=== PATIENT | male | born 1990 | race Two or more races ===

== ENCOUNTER 2024-07-17 22:24 | Inpatient (IN) | payer MEDICAID, OTHER ==
[~2024-07-17] VITALS: Ht 172.7 cm; Wt 112.5 kg
[2024-07-17 23:08] LABS: Basophils # (auto) 0.1 10 ^3/uL (0-0.2); Basophils % (auto) 0.6 % (0.0-2.0); Eosinophils # (auto) 0.2 10 ^3/uL (0-0.8); Eosinophils % (auto) 1.9 % (0.0-7.0); Hematocrit 42.8 % (41.0-53.0); Hemoglobin 14.8 g/dL (13.5-17.5); Lymphocytes # (auto) 3.5 10 ^3/uL (0.4-5.4); Lymphocytes % (auto) 33.2 % (10.0-50.0); Mean Corpuscular Hemoglobin 32.1 pg (28.0-32.0); Mean Corpuscular Hgb Conc. 34.6 g/dL (32.0-36.0); Mean Corpuscular Volume 92.7 fL (80.0-100.0); Monocytes # (auto) 0.9 10 ^3/uL (0-1.3); Monocytes % (auto) 8.2 % (0.0-12.0); Neutrophils % (auto) 56.1 % (37.0-80.0); Nucleated Red Blood Cells % 0.1 %; Platelet Count (auto) 263 10^3/uL (140-450); Red Blood Cells 4.62 10^6/uL (4.5-5.90); Red Cell Distribution Width 14.4 % (11.8-14.3); White Blood Cell 10.6 10^3/uL (4.4-10.8)
[2024-07-17 23:19] VITALS: PULSE 84; RESP 15
[2024-07-17 23:19] LABS: Alanine Aminotransferase 40 U/L (7-40); Albumin 4.5 g/dL (3.2-4.8); Alkaline Phosphatase 95 U/L (46-116); Anion Gap 11 (5-15); Aspartate Aminotransferase 19 U/L (13-40); BUN/Creatinine Ratio 12.1 (10.0-20.0); Bilirubin, Total 0.3 mg/dL (0.2-1.0); Blood Urea Nitrogen 12 mg/dL (9-23); Calcium 10.1 mg/dL (8.7-10.4); Carbon Dioxide 24 mmol/L (20-31); Chloride 104 mmol/L (98-107); Glucose 94 mg/dL (74-106); Magnesium 1.7 mg/dL (1.6-2.6); Potassium 3.5 mmol/L (3.5-5.1); Sodium 139 mmol/L (136-145); Total Protein 7.2 g/dL (5.7-8.2)
--- NOTE | 2024-07-17 23:23 | DVH ---
EXAM: XY CHEST PORTABLE CLINICAL HISTORY: chest pain TECHNIQUE: Single AP view of the chest WID: COMPARISON: None FINDINGS: Lines and tubes: None Chest: The heart size and pulmonary vasculature is within normal limits. No pleural effusion, pneumothorax, or consolidation. The osseous structures are grossly intact. IMPRESSION: No acute cardiopulmonary abnormality.
[2024-07-17] MEDS: IOHEXOL 350 MG/ML 100ML IJ ONE (23:34)
--- NOTE | 2024-07-17 23:38 | DVH ---
INDICATION: pleuritic chest pain COMPARISON: None TECHNIQUE: Multidetector CTA of the chest was performed of the chest with 100 cc of intravenous omnip aque 350 contrast. PULMONARY ANGIOGRAPHY PROTOCOL was utilized using a bolus-tracking technique cente red on the main pulmonary artery. Axial, coronal and sagittal multiplanar and MIP reformats were perf ormed. Radiation Dose : 1. Chest: CTDI volume is 28.58 mGy. Dose-length product is 1506.48 mGy*cm The dose indicators for CT are the volume Computed Tomography (CT) Dose Index (CTDIvol) and the Dose Length Product (DLP), and are measured in units of mGy and mGy-cm, respectively. These indicators are not patient dose, but values generated from the CT scanner acquisition factors. The report includes radiation exposure data for exposures received during this examination. Findings: There is cardiomegaly. There is interstitial stranding in the lower lung bases I do not see evidence for pulmonary embolus. No evidence for dissection of the aorta. In the ribs are intact. Is also some evidence for interstitial edema. Lower esophagus is unremarkable. IMPRESSION: 1. Interstitial edema no evidence for pulmonary embolus. There is also cardiomegaly. Follow-up cardi ac consult is suggested
[2024-07-18 00:08] LABS: Urine Bacteria None Seen /hpf (None Seen)
[2024-07-18 00:49] LABS: Urine Blood Negative /uL (Negative); Urine Clarity Clear (Clear); Urine Color Light-Yellow (Yellow); Urine Protein, UAD TRACE (Negative); Urine Squamous Epithelial Cell None Seen /hpf (<5); Urine Urobilinogen Normal (Negative); Urine pH 5.5 (5.0-9.0)
[2024-07-18 00:51] LABS: Urine Specific Gravity > 1.050 (1.001-1.035); Urine WBC < 1 /HPF (0-3)
--- NOTE | 2024-07-18 02:06 | ED.PDOC ---
History of Present Illness HPI Comments 34 y/o M, with a Hx of HTN, gout, obesity, and tobacco use, presents with relative for c/o chest and back pain, shortness of breath, dizziness, and lightheadedness, today. Patient is a poor historian and endorses on unprovoked onset of symptoms that have been persisting, intermittently, for the past 2x weeks. Patient comments on pain originating from his sternum and radiating to his back, directly, and describes it as pressure-like in quality. He also states on [id number] pain medication use with minimal relief. He denies having any palpitations, nausea, vomiting, fever, chills, or other associated symptoms or modifiers at this time. Chief Complaint: Chest Pain Time Seen by MD: 23:30 Reviewed Notes: Nurses Notes, Medications, Allergies Information Source: Patient Mode of Arrival: Ambulatory Severity: Moderate Timing: Weeks Duration: Intermittent Prehospital treatment: None Past Medical History PAST MEDICAL HISTORY: Gout, HTN Past Medical History (Other): obesity Surgical History: Denies all surgeries Family History Family History: Unknown Social History Smoker: Cigarettes Alcohol: Denies ETOH Use Drugs: Denies Drug Use Lives In: Home Respiratory: reports: shortness of breath Cardiovascular: reports: chest pain, dizzy spells, lightheadedness Musculoskeletal: reports: back pain All Other Systems: Reviewed and Negative (negative unless otherwises stated above or in HPI) Physical Exam General Appearance: No Apparent Distress, Obese HEENT: Normal ENT Inspection, Pharynx Normal, TMs Normal Neck: Full Range of Motion, Non-Tender, Normal, Normal Inspection Respiratory: Chest Non-Tender, Lungs Clear, No Accessory Muscle Use, No Respiratory Distress, Normal Breath Sounds Cardiovascular: No Edema, No JVD, No Murmur, No Gallop, Normal Peripheral Pulses, Regular Rate/Rhythm Breast Exam: Deferred Gastrointestinal: No Organomegaly, Non Tender, No Pulsatile Mass, Normal Bowel Sounds, Soft Genitalia: Deferred Pelvic: Deferred Rectal: Deferred Extremities: No calf tenderness, Normal capillary refill, Normal inspection, Normal range of motion, Non-tender, No pedal edema Musculoskeletal : Apperance: Normal Neurologic: Alert, 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 Was a procedure done?: No EKG EKG : Pulse Rate (adult): 92 [place]: Normal Cardiac Rhythm: NSR Block: None Hypertrophy: None ST: Normal Differential Dx Considerations may include: [place], ACS, PE, PNA, viral syndrome, costochondritis, pericarditis X-Ray, Labs, Meds, VS Vital Signs Date Time Temp Pulse Resp B/P (MAP) Pulse Ox O2 Delivery O2 Flow Rate FiO2 07/18/24 02:31 87 16 118/73 07/18/24 02:28 98.0 87 16 118/73 (88) 96 98.0 07/18/24 02:06 92 07/17/24 23:48 92 07/17/24 23:20 137/91 (106) 07/17/24 23:19 97.9 95 14 130/95 (107) 94 97.9 07/17/24 22:33 98.6 105 18 147/93 (111) 95 07/17/24 22:30 96 Lab Test 07/18/24 00:00 07/17/24 23:40 07/17/24 22:35 Range/Units Urine Color Light-yellow Yellow Urine Clarity Clear Clear Urine pH 5.5 5.0-9.0 Urine Specific [place] > 1.050 H 1.001-1.035 Urine Protein Trace H Negative Urine Ketones Negative Negative Urine Blood Negative Negative /uL Urine Nitrite Negative Negative Urine Bilirubin Negative Negative Urine Urobilinogen Normal Negative mg/dL Urine Leukocyte Esterase Negative Negative /uL Urine RBC <1 0 - 3 /hpf Urine Microscopic WBC < 1 0-3 /HPF Urine Squamous Epithelial Cells None seen <5 /hpf Urine Bacteria None seen None Seen /hpf Urine Glucose Normal Normal mg/dL Troponin I High Sensitivity < 3 L < 3 L </=54 ng/L White Blood Count 10.6 4.4-10.8 10^3/uL Red Blood Count 4.62 4.5-5.90 10^6/uL Hemoglobin 14.8 13.5-17.5 g/dL Hematocrit 42.8 41.0-53.0 % Mean Corpuscular Volume 92.7 80.0-100.0 fL Mean Corpuscular Hemoglobin 32.1 H 28.0-32.0 pg Mean Corpuscular Hemoglobin Concent 34.6 32.0-36.0 g/dL Red Cell Distribution Width 14.4 H 11.8-14.3 % Platelet Count 263 140-450 10^3/uL Mean Platelet Volume 9.2 6.9-10.8 fL Neutrophils (%) (Auto) 56.1 37.0-80.0 % Lymphocytes (%) (Auto) 33.2 10.0-50.0 % Monocytes (%) (Auto) 8.2 0.0-12.0 % Eosinophils (%) (Auto) 1.9 0.0-7.0 % Basophils (%) (Auto) 0.6 0.0-2.0 % Neutrophils # (Auto) 6.0 1.6-8.6 10 ^3/uL Lymphocytes # (Auto) 3.5 0.4-5.4 10 ^3/uL Monocytes # (Auto) 0.9 0-1.3 10 ^3/uL Eosinophils # (Auto) 0.2 0-0.8 10 ^3/uL Basophils # (Auto) 0.1 0-0.2 10 ^3/uL Nucleated Red Blood Cells 0.1 % Sodium Level 139 136-145 mmol/L Potassium Level 3.5 3.5-5.1 mmol/L Chloride Level 104 98-107 mmol/L Carbon Dioxide Level 24 20-31 mmol/L Anion Gap 11 5-15 Blood Urea Nitrogen 12 9-23 mg/dL Creatinine 0.99 0.700-1.30 mg/dL Glomerular Filtration Rate Calc 103 >90 mL/min BUN/Creatinine Ratio 12.1 10.0-20.0 Serum Glucose 94 74-106 mg/dL Calcium Level 10.1 8.7-10.4 mg/dL Magnesium Level 1.7 1.6-2.6 mg/dL Total Bilirubin 0.3 0.2-1.0 mg/dL Aspartate Amino Transferase (AST) 19 13-40 U/L Alanine Aminotransferase (ALT) 40 7-40 U/L Alkaline Phosphatase 95 46-116 U/L Total Protein 7.2 5.7-8.2 g/dL Albumin 4.5 3.2-4.8 g/dL Current Medications Medications (Trade) Dose Ordered Sig/Poppy Route Start Time Stop Time Status Last Admin Ondansetron HCl (Zofran) 4 mg ONCE ONCE IV 07/18/24 00:45 07/18/24 00:46 DC 07/18/24 02:30 Morphine Sulfate 4 mg ONCE ONCE IV 07/18/24 00:45 07/18/24 00:46 DC 07/18/24 02:[address] [address] Ph: [phone] DIAGNOSTIC IMAGING Diagnostic Imaging Report : [id number] Signed PATIENT: SOHA FIELDS ACCT: [id number] UNIT: [id number] : 1990 LOC: ER ROOM / BED: / AGE / SEX: 34 / M ADM STATUS: REG ER SERVICE [id number] ORDERING PHYSICIAN: AIDA VELAZQUEZ MD PROCEDURE(s): CTACH - CT ANGIO CHEST CONTRAST REASON: pleuritic chest pain ORDER NUMBER(s): [id number], ACCESSION NUMBER(s): [id number] INDICATION: pleuritic chest pain COMPARISON: None TECHNIQUE: Multidetector CTA of the chest was performed of the chest with 100 cc of intravenous omnipaque 350 contrast. PULMONARY ANGIOGRAPHY PROTOCOL was utilized using a bolus-tracking technique centered on the main pulmonary artery. Axial, coronal and sagittal multiplanar and MIP reformats were performed. Radiation Dose : 1. Chest: CTDI volume is 28.58 mGy. Dose-length product is 1506.48 mGy*cm The dose indicators for CT are the volume Computed Tomography (CT) Dose Index (CTDIvol) and the Dose Length Product (DLP), and are measured in units of mGy and mGy-cm, respectively. These indicators are not patient dose, but values generated from the CT scanner acquisition factors. The report includes radiation exposure data for exposures received during this examination. Findings: There is cardiomegaly. There is interstitial stranding in the lower lung bases I do not see evidence for pulmonary embolus. No evidence for dissection of the aorta. In the ribs are intact. Is also some evidence for interstitial edema. Lower esophagus is unremarkable. IMPRESSION: 1. Interstitial edema no evidence for pulmonary embolus. There is also cardiomegaly. Follow-up cardiac consult is suggested ATED BY: REMY WRIGHT MD DICTATED DATE/TIME: 07/17/242335 SIGNED BY: REMY WRIGHT MD SIGNED DATE/TIME: 07/17/242335 CC: [place] [id number] Ph: [phone] DIAGNOSTIC IMAGING Diagnostic Imaging Report : [id number] Signed PATIENT: SOHA FIELDS ACCT: [id number] UNIT: [id number] : 1990 LOC: ER ROOM / BED: / AGE / SEX: 34 / M ADM STATUS: REG ER SERVICE 30 ORDERING PHYSICIAN: AIDA VELAZQUEZ MD PROCEDURE(s): CXRP - CHEST PORTABLE REASON: chest pain ORDER NUMBER(s): [id number], ACCESSION NUMBER(s): [id number] EXAM: XY CHEST PORTABLE CLINICAL HISTORY: chest pain TECHNIQUE: Single AP view of the chest WID: COMPARISON: None FINDINGS: Lines and tubes: None Chest: The heart size and pulmonary vasculature is within normal limits. No pleural effusion, pneumothorax, or consolidation. The osseous structures are grossly intact. IMPRESSION: No acute cardiopulmonary abnormality. ATED BY: MELANIE VEGA MD DICTATED DATE/TIME: 07/17/242319 SIGNED BY: MELANIE VEGA MD SIGNED DATE/TIME: 07/17/242319 CC: [place] [address] Ph: [phone] DIAGNOSTIC IMAGING Diagnostic Imaging Report : [id number] Signed PATIENT: SOHA FIELDSACCT: [id number] UNIT: [id number] : 1990 LOC: ER ROOM / BED: / AGE / SEX: 34 / M ADM STATUS: REG ER SERVICE 52 ORDERING PHYSICIAN: AIDA VELAZQUEZ MD PROCEDURE(s): CTACH - CT ANGIO CHEST CONTRAST REASON: pleuritic chest pain ORDER NUMBER(s): [id number], ACCESSION NUMBER(s): [id number] INDICATION: pleuritic chest pain COMPARISON: None TECHNIQUE: Multidetector CTA of the chest was performed of the chest with 100 cc of intravenous omnipaque 350 contrast. PULMONARY ANGIOGRAPHY PROTOCOL was utilized using a bolus-tracking technique centered on the main pulmonary artery. Axial, coronal and sagittal multiplanar and MIP reformats were performed. Radiation Dose : 1. Chest: CTDI volume is 28.58 mGy. Dose-length product is 1506.48 mGy*cm The dose indicators for CT are the volume Computed Tomography (CT) Dose Index (CTDIvol) and the Dose Length Product (DLP), and are measured in units of mGy and mGy-cm, respectively. These indicators are not patient dose, but values generated from the CT scanner acquisition factors. The report includes radiation exposure data for exposures received during this examination. Findings: There is cardiomegaly. There is interstitial stranding in the lower lung bases I do not see evidence for pulmonary embolus. No evidence for dissection of the aorta. In the ribs are intact. Is also some evidence for interstitial edema. Lower esophagus is unremarkable. IMPRESSION: 1. Interstitial edema no evidence for pulmonary embolus. There is also cardiomegaly. Follow-up cardiac consult is suggested ATED BY: REMY WRIGHT MD DICTATED DATE/TIME: 07/17/242335 SIGNED BY: REMY WRIGHT MD SIGNED DATE/TIME: 07/17/24 233 CC: First troponin is three 2nd troponin is three. Is no signs of ischemia. UA is negative CMP is normal. Cardiomegaly and is pulmonary region was treated with Lasix and morphine Patient has no signs of pulmonary embolus on CT angio. The patient will be admitted to the hospital for further evaluation and care. Time of 1ST Reevaluation: 00:00 Reevaluation 1ST: Unchanged Patient Education/Counseling: Diagnosis, Treatment Family Education/Counseling: Diagnosis, Treatment Departure 1 Departure Time of Disposition: 02:48 Impression: Primary Impression: Chest pain Qualified Codes: R07.9 - Chest pain, unspecified Additional Impressions: Interstitial edema Qualified Codes: R60.9 - Edema, unspecified Cardiomegaly Disposition: ADMITTED INPATIENT Admit to: [facility] Condition: Guarded Critical Care Note Critical Care Time?: Yes (45 min-critical care time only) Stability Stability form required: No Heart Score Heart Score: Heart Score Response (Comments) Value History Slightly Suspicious 0 EKG Normal 0 Age <45 0 Risk Factors >3 or Hx ASHD 2 Troponin Normal limit 0 Total 2 I personally scribed for AIDA VELAZQUEZ MD ([email or web address]) on 07/18/24 at 02:06. Electronically submitted by Slim Lea ([email or web address]). I personally scribed for AIDA VELAZQUEZ MD ([email or web address]) on 07/18/24 at 02:12. Electronically submitted by Slim Lea ([email or web address]). AIDA VELAZQUEZ MD Jul 18, 2024 02:06
[2024-07-18] MEDS: ONDANSETRON HCL 4 MG/2 ML VIAL IV ONE (02:30)
[2024-07-18] MEDS: MORPHINE SULFATE 4 MG/ML SYR/VIAL IV ONE (02:31)
[2024-07-18] MEDS ORDERED: MORPHINE SULFATE INJ 2 MG/ml SYRG IV PRN (04:45)
[2024-07-18] MEDS ORDERED: ONDANSETRON HCL 4 MG/2 ML VIAL IV PRN (04:45)
--- NOTE | 2024-07-18 05:20 | DVHHP2 ---
History of Present Illness Reason for Visit: Chest pain History of Present Illness 34-year-old male presents for evaluation of chest pain. Patient reports a two week history of intermittent substernal pressure-like chest pain that radiates to his back. He states that over the past two days symptoms became more constant so he presented for further evaluation. Past Medical History Prediabetes, gout and hypertension Past Surgical History Denies Family History Noncontributory Smoke: <1 pack per day ALCOHOL: none Drugs: None Lives: with Family Review of Systems Review of Systems Review of systems are currently negative otherwise addressed in HPI. Allergies: Coded Allergies: NO KNOWN ALLERGIES (Unverified , 07/18/24) Medications Current Medications Medications Dose Ordered Sig/Poppy Route Start Time Stop Time Status Last Admin Dose Admin Aspirin 81 mg DAILY PO 07/18/24 10:00 Ondansetron HCl 4 mg Q4HP PRN IV 07/18/24 04:45 Nitroglycerin 0.4 mg Q5MINP PRN SL 07/18/24 04:45 Morphine Sulfate 2 mg Q30M PRN IV 07/18/24 04:45 Exam Vital Signs Vital Signs Date Time Temp Pulse Resp B/P (MAP) Pulse Ox O2 Delivery O2 Flow Rate FiO2 07/18/24 04:30 85 15 115/70 (85) 95 07/18/24 02:28 98.0 98.0 Exam Gen: 34-year-old male in no apparent distress Skin: Warm, dry, normal color and texture, no rash. HEENT: Normocephalic atraumatic, mucous membranes moist and pink. Neck: Cervical and supraclavicular nodes normal without enlargement, trachea is midline, thyroid gland is normal without masses. Pulmonary: Clear to auscultation and percussion bilaterally. Cardiac: Regular rate and rhythm. No murmur Abdomen: Soft, nontender, nondistended, bowel sounds present all 4 quadrants, no guarding, no rigidity, no organomegaly. Extremities: No cyanosis, clubbing, no edema Neuro: Cranial nerves II through XII grossly intact, normal affect and speech, no focal motor deficits. Labs/Xrays ORDERING PHYSICIAN: AIDA VELAZQUEZ MD PROCEDURE(s): CTACH - CT ANGIO CHEST CONTRAST REASON: pleuritic chest pain ORDER NUMBER(s): [id number], ACCESSION NUMBER(s): [id number] INDICATION: pleuritic chest pain COMPARISON: None TECHNIQUE: Multidetector CTA of the chest was performed of the chest with 100 cc of intravenous omnipaque 350 contrast. PULMONARY ANGIOGRAPHY PROTOCOL was u tilized using a bolus-tracking technique centered on the main pulmonary artery. Axial, coronal and sagittal multiplanar and MIP reformats were performed. Radiation Dose : 1. Chest: CTDI volume is 28.58 mGy. Dose-length product is 1506.48 mGy*cm The dose indicators for CT are the volume Computed Tomography (CT) Dose Index (CTDIvol) and the Dose Length Product (DLP), and are measured in units of mGy and mGy-cm, respectively. These indicators are not patient dose, but values generated from the CT scanner acquisition factors. The report includes radiation exposure data for exposures received during this examination. Findings: There is cardiomegaly. There is interstitial stranding in the lower lung bases I do not see evidence for pulmonary embolus. No evidence for dissection of the aorta. In the ribs are intact. Is also some evidence for interstitial edema. Lower esophagus is unremarkable. IMPRESSION: 1. Interstitial edema no evidence for pulmonary embolus. There is also cardiomegaly. Follow-up cardiac consult is suggested Labs Test 07/18/24 00:00 07/17/24 23:40 07/17/24 22:35 Range/Units Urine Color Light-yellow Yellow Urine Clarity Clear Clear Urine pH 5.5 5.0-9.0 Urine Specific [place] > 1.050 H 1.001-1.035 Urine Protein Trace H Negative Urine Ketones Negative Negative Urine Blood Negative Negative /uL Urine Nitrite Negative Negative Urine Bilirubin Negative Negative Urine Urobilinogen Normal Negative mg/dL Urine Leukocyte Esterase Negative Negative /uL Urine RBC <1 0 - 3 /hpf Urine Microscopic WBC < 1 0-3 /HPF Urine Squamous Epithelial Cells None seen <5 /hpf Urine Bacteria None seen None Seen /hpf Urine Glucose Normal Normal mg/dL Troponin I High Sensitivity < 3 L </=54 ng/L White Blood Count 10.6 4.4-10.8 10^3/uL Red Blood Count 4.62 4.5-5.90 10^6/uL Hemoglobin 14.8 13.5-17.5 g/dL Hematocrit 42.8 41.0-53.0 % Mean Corpuscular Volume 92.7 80.0-100.0 fL Mean Corpuscular Hemoglobin 32.1 H 28.0-32.0 pg Mean Corpuscular Hemoglobin Concent 34.6 32.0-36.0 g/dL Red Cell Distribution Width 14.4 H 11.8-14.3 % Platelet Count 263 140-450 10^3/uL Mean Platelet Volume 9.2 6.9-10.8 fL Neutrophils (%) (Auto) 56.1 37.0-80.0 % Lymphocytes (%) (Auto) 33.2 10.0-50.0 % Monocytes (%) (Auto) 8.2 0.0-12.0 % Eosinophils (%) (Auto) 1.9 0.0-7.0 % Basophils (%) (Auto) 0.6 0.0-2.0 % Neutrophils # (Auto) 6.0 1.6-8.6 10 ^3/uL Lymphocytes # (Auto) 3.5 0.4-5.4 10 ^3/uL Monocytes # (Auto) 0.9 0-1.3 10 ^3/uL Eosinophils # (Auto) 0.2 0-0.8 10 ^3/uL Basophils # (Auto) 0.1 0-0.2 10 ^3/uL Nucleated Red Blood Cells 0.1 % Sodium Level 139 136-145 mmol/L Potassium Level 3.5 3.5-5.1 mmol/L Chloride Level 104 98-107 mmol/L Carbon Dioxide Level 24 20-31 mmol/L Anion Gap 11 5-15 Blood Urea Nitrogen 12 9-23 mg/dL Creatinine 0.99 0.700-1.30 mg/dL Glomerular Filtration Rate Calc 103 >90 mL/min BUN/Creatinine Ratio 12.1 10.0-20.0 Serum Glucose 94 74-106 mg/dL Calcium Level 10.1 8.7-10.4 mg/dL Magnesium Level 1.7 1.6-2.6 mg/dL Total Bilirubin 0.3 0.2-1.0 mg/dL Aspartate Amino Transferase (AST) 19 13-40 U/L Alanine Aminotransferase (ALT) 40 7-40 U/L Alkaline Phosphatase 95 46-116 U/L B-Type Natriuretic Peptide 2.25 0-100 pg/mL Total Protein 7.2 5.7-8.2 g/dL Albumin 4.5 3.2-4.8 g/dL Assessment/Plan Assessment/Plan Assessment Noncardiac chest pain Prediabetes Gout Plan Admit the patient to telemetry to the hospitalist Cardiology consultation Echocardiogram pending Continue treatment per orders Plan discussed with: Patient My Orders Orders - HALINA WILSON Procedure Category Date Status Time Aspirin Tablet PHA 07/18/24 In Process 10:00 Basic Metabolic Panel LAB 07/19/24 Verified 04:00 * Cardiology Consult CONS 07/18/24 Transmitted 04:41 Admit ADMIT 07/18/24 Transmitted 04:41 Ondansetron Hcl PHA 07/18/24 In Process (Zofran) 04:45 Cardiac DIET 07/18/24 Transmitted Diet-2gna,Lofat,Lochol Breakfast Echo 2d Mode Cardiac US 07/18/24 Logged DOP 04:41 Condition: Fair NELSON 07/18/24 In Process 04:41 Bedrest With Bathroom NELSON 07/18/24 In Process Privileg 04:41 Nitroglycerin PHA 07/18/24 In Process Sublingual (Ntrostat 04:45 Morphine Sulfate PHA 07/18/24 In Process Injection 04:45 Stat Ekg For Chest NELSON 07/18/24 In Process Pain 04:41 Notify Md Of Changes NELSON 07/18/24 In Process From Base 04:41 Botany Laboratory Assistant For NELSON 07/18/24 In Process 24 Hours 04:41 Emergency Dysrhythmia NELSON 07/18/24 In Process Protocol 04:41 Rhythm Strips Once [facility] 07/18/24 In Process Every Shift 04:41 Oxygen By Nasal RT 07/18/24 Transmitted Cannula 04:41 Date of Service: Jul 18, 2024 Billing Provider: HALINA WILSON Common Visit Codes: [id number] INP/OBS CARE (HIGH) HALINA WILSON Jul 18, 2024 05:20
--- NOTE | 2024-07-18 07:59 | DVHINCON2 ---
Date Seen: Jul 18, 2024 Referring Physician AJAY May Reason for Consultation Chest pain History of Present Illness This is a 34-year-old man who presented to the emergency room with a chief complaint of chest pain for two weeks. The patient reports approximately two weeks ago he was helping his mother moving heavy items when he developed right- sided chest wall pain now radiating to the left and localized mostly to the left ribcage area and middle back. The pain is sharp in nature, worse with movement, and reproducible upon palpation. States he has taken tramadol at home with no relief of symptoms. He was medicated in the emergency room with morphine with no relief of symptoms. He underwent multiple 12 lead electrocardiogram revealing a sinus rhythm with T-wave inversion to single lead III. Serial troponin levels are negative. Significant medical history includes gout, prediabetes, and morbid obesity. Of note, the patient takes Cardizem at home as prescribed but an unknown provider in [facility] as he experiences sinus tachycardia during gout exacerbations. Past Medical History Past medical history reviewed. No other significant than mentioned above. Past Surgical History Past Surgical history reviewed. No other significant than mentioned above. Family History Family history reviewed. Father with CHF. Social History Admits to occasional alcohol and cannabinoid use. Quit smoking tobacco eight months ago. Allergies: Coded Allergies: NO KNOWN ALLERGIES (Unverified , 07/18/24) Home Meds On many patients include Cardizem, tramadol, allopurinol. Current Medications Current Medications Medications (Trade) Dose Ordered Sig/Poppy Route PRN Reason Start Time Stop Time Status Last Admin Aspirin 81 mg DAILY PO 07/18/24 10:00 Ondansetron HCl (Zofran) 4 mg Q4HP PRN IV NAUSEA / VOMITING 07/18/24 04:45 Nitroglycerin (Ntrostat Sublingual) 0.4 mg Q5MINP PRN SL FOR CHEST PAIN 07/18/24 04:45 Morphine Sulfate 2 mg Q30M PRN IV FOR CHEST PAIN 07/18/24 04:45 Review of Systems Constitutional: No symptom reported Ears, Nose, & Throat: No symptom reported Eyes: No symptom reported Neurological: No symptoms reported Pulmonary/Respiratory: No symptom reported Cardiovascular: No symptom reported Gastrointestinal: No symptom reported Genitourinary: No symptom reported Musculoskeletal: Chest wall pain Skin: No symptom reported Psychiatric: No symptom reported Endocrine: No symptom reported Hemotologic/Lymphatic: No symptom reported Vital Signs Vital Signs Date Time Temp Pulse Resp B/P (MAP) Pulse Ox O2 Delivery O2 Flow Rate FiO2 07/18/24 06:52 98.0 88 15 110/50 (70) 95 98.0 07/17/24 23:19 Room Air* 0 21 Physical Exam General Appearance: Cooperative. Well developed. Obese. In no acute distress Head Exam: Normal inspection Neck Exam: Normal inspection. Non-tender. Normal alignment Pulmonary/Respiratory: Chest non-tender. Clear bilateral breath sounds Cardiovascular/Chest: Regular rate and rhythm. S1, S2. Sinus rhythm with T-wa ve inversion to single lead III. No murmurs. No JVD. Peripheral Pulses: 2+ Radial (R). 2+ Radial (L). 2+ Pedal (R). 2+ Pedal (L) Abdominal Exam: Normal bowel sounds. Soft. Nontender. No hepatospenomegaly. No masses Ankle Exam: Negative ankle edema Lower extremities: Negative lower extremity edema Neuro/Mental Status: A&O x4. Coherent Thoughts/Psych: Normal thought pattern. Appropriate mood and affect. Good judgement and insight Appearance: In no acute distress Skin Exam: Normal inspection. Normal color. Warm. Dry Labs/Diagnostic Data Labs Test 07/18/24 00:00 07/17/24 23:40 07/17/24 22:35 Range/Units Urine Color Light-yellow Yellow Urine Clarity Clear Clear Urine pH 5.5 5.0-9.0 Urine Specific [place] > 1.050 H 1.001-1.035 Urine Protein Trace H Negative Urine Ketones Negative Negative Urine Blood Negative Negative /uL Urine Nitrite Negative Negative Urine Bilirubin Negative Negative Urine Urobilinogen Normal Negative mg/dL Urine Leukocyte Esterase Negative Negative /uL Urine RBC <1 0 - 3 /hpf Urine Microscopic WBC < 1 0-3 /HPF Urine Squamous Epithelial Cells None seen <5 /hpf Urine Bacteria None seen None Seen /hpf Urine Glucose Normal Normal mg/dL Troponin I High Sensitivity < 3 L </=54 ng/L White Blood Count 10.6 4.4-10.8 10^3/uL Red Blood Count 4.62 4.5-5.90 10^6/uL Hemoglobin 14.8 13.5-17.5 g/dL Hematocrit 42.8 41.0-53.0 % Mean Corpuscular Volume 92.7 80.0-100.0 fL Mean Corpuscular Hemoglobin 32.1 H 28.0-32.0 pg Mean Corpuscular Hemoglobin Concent 34.6 32.0-36.0 g/dL Red Cell Distribution Width 14.4 H 11.8-14.3 % Platelet Count 263 140-450 10^3/uL Mean Platelet Volume 9.2 6.9-10.8 fL Neutrophils (%) (Auto) 56.1 37.0-80.0 % Lymphocytes (%) (Auto) 33.2 10.0-50.0 % Monocytes (%) (Auto) 8.2 0.0-12.0 % Eosinophils (%) (Auto) 1.9 0.0-7.0 % Basophils (%) (Auto) 0.6 0.0-2.0 % Neutrophils # (Auto) 6.0 1.6-8.6 10 ^3/uL Lymphocytes # (Auto) 3.5 0.4-5.4 10 ^3/uL Monocytes # (Auto) 0.9 0-1.3 10 ^3/uL Eosinophils # (Auto) 0.2 0-0.8 10 ^3/uL Basophils # (Auto) 0.1 0-0.2 10 ^3/uL Nucleated Red Blood Cells 0.1 % Sodium Level 139 136-145 mmol/L Potassium Level 3.5 3.5-5.1 mmol/L Chloride Level 104 98-107 mmol/L Carbon Dioxide Level 24 20-31 mmol/L Anion Gap 11 5-15 Blood Urea Nitrogen 12 9-23 mg/dL Creatinine 0.99 0.700-1.30 mg/dL Glomerular Filtration Rate Calc 103 >90 mL/min BUN/Creatinine Ratio 12.1 10.0-20.0 Serum Glucose 94 74-106 mg/dL Calcium Level 10.1 8.7-10.4 mg/dL Magnesium Level 1.7 1.6-2.6 mg/dL Total Bilirubin 0.3 0.2-1.0 mg/dL Aspartate Amino Transferase (AST) 19 13-40 U/L Alanine Aminotransferase (ALT) 40 7-40 U/L Alkaline Phosphatase 95 46-116 U/L B-Type Natriuretic Peptide 2.25 0-100 pg/mL Total Protein 7.2 5.7-8.2 g/dL Albumin 4.5 3.2-4.8 g/dL Assessment Noncardiac chest pain, chest wall pain Rule out structural heart disease Prediabetes Gout Obesity Plan/Recommendation (Dr. Sinclair) The patient presents with most likely chest wall pain secondary to heavy lifting which is reproducible upon palpation. Heart Score in 1 point placing the patient at a low risk for major cardiac events. We will continue further cardiac evaluation with a transthoracic echocardiogram to rule out structural heart disease. Consider NSAIDs for pain management. Obtain UDS. In the setting of an unremarkable echocardiogram, there is no further cardiac workup indicated at this time. Thank you for allowing us to participate in this patient's care. Please call if you have any questions or concerns. This medical document was created using an electronic medical record system with voice recognition software and computerized dictation system. Although this document has been carefully reviewed, there might still be some phonetic and typographical errors. Occasional wrong-word or ``sound-alike substitutions may have occurred due to the inherent limitations of voice recognition software. These areas are purely typographical due to imperfections of the software programs and do not reflect any compromise in the patient's medical care. Please read the chart carefully and recognize, using context, where these substitutions have occurred. Plan discussed with: Patient, Other NYHA Physical activity limitations: NA Date of Service: Jul 18, 2024 Billing Provider: SHALOM CROOKS Cardiology Common Codes: [id number] INP/OBS CARE (High) SHALOM CROOKS Jul 18, 2024 07:59
[2024-07-18] MEDS: ASPirin 81 mg TAB PO SCH (10:34)
--- NOTE | 2024-07-18 12:13 | ECG ---
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
--- NOTE | 2024-07-18 12:13 | ECG ---
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
[2024-07-18 12:45] VITALS: BP 126/79; PULSE 75; RESP 16; TEMP 97.2; O2SAT 95
[2024-07-18 12:59] LABS: Amphetamine Screen, Urine Neg (NEGATIVE); Barbiturate Scree,Urine Neg (NEGATIVE); Benzodiazephine Screen, Urine Neg (NEGATIVE); Cannabinoid Screen, Urine Neg (NEGATIVE); Cocaine Screen, Urine Neg (NEGATIVE); Opiate Scree,Urine Neg (NEGATIVE); Phencyclidine Screen, Urine Neg (NEGATIVE)
[2024-07-18] MEDS: NITROGLYCERIN 0.4 MG SL TAB SL PRN (14:49)
--- NOTE | 2024-07-18 16:28 | DVHPN2 ---
Reviewed: Care Plan, H&P, Labs, Medications, Previous Orders, Radiology Changes from previous H/P or p: No Changes Objective Vitals Vital Signs Date Time Temp Pulse Resp B/P (MAP) Pulse Ox O2 Delivery O2 Flow Rate FiO2 07/18/24 14:49 126/79 07/18/24 06:52 98.0 88 15 95 98.0 07/17/24 23:19 Room Air* 0 21 Medications Current Medications Medications Dose Ordered Sig/Poppy Route Start Time Stop Time Status Last Admin Dose Admin Aspirin 81 mg DAILY PO 07/18/24 10:00 07/18/24 14:47 81 MG Ondansetron HCl 4 mg Q4HP PRN IV 07/18/24 04:45 Nitroglycerin 0.4 mg Q5MINP PRN SL 07/18/24 04:45 07/18/24 14:49 0.4 MG Morphine Sulfate 2 mg Q30M PRN IV 07/18/24 04:45 Laboratory Results Laboratory Tests 07/17/24 22:35 Chemistry Test 07/17/24 22:35 Albumin 4.5 g/dL (3.2-4.8) Calcium Level 10.1 mg/dL (8.7-10.4) Magnesium Level 1.7 mg/dL (1.6-2.6) Total Protein 7.2 g/dL (5.7-8.2) Cardiac Markers Test 07/17/24 22:35 B-Type Natriuretic Peptide 2.25 pg/mL (0-100) LFT Test 07/17/24 22:35 Alanine Aminotransferase (ALT) 40 U/L (7-40) Alkaline Phosphatase 95 U/L (46-116) Aspartate Amino Transferase (AST) 19 U/L (13-40) Total Bilirubin 0.3 mg/dL (0.2-1.0) Urinalysis Test 07/18/24 00:00 Urine Color Light-yellow (Yellow) Urine Clarity Clear (Clear) Urine pH 5.5 (5.0-9.0) Urine Specific [place] > 1.050 (1.001-1.035) Urine Protein Trace (Negative) H Urine Ketones Negative (Negative) Urine Blood Negative /uL (Negative) Urine Nitrite Negative (Negative) Urine Bilirubin Negative (Negative) Urine Urobilinogen Normal mg/dL (Negative) Urine Leukocyte Esterase Negative /uL (Negative) Urine RBC <1 /hpf (0 - 3) Urine Microscopic WBC < 1 /HPF (0-3) Urine Squamous Epithelial Cells None seen /hpf (<5) Urine Bacteria None seen /hpf (None Seen) Urine Glucose Normal mg/dL (Normal) Labs and/or images reviewed: Labs reviewed by me, Image(s) reviewed by me Assessment/Plan Assessment/Plan Noncardiac chest pain, chest wall pain cardiology consult appreciated, echocardiogram pending Rule out structural heart disease Prediabetes Gout Obesity Urine drug screen neg Plan discussed with: Patient Date of Service: Jul 18, 2024 Billing Provider: TOM BUENROSTRO MD Common Visit Codes: [id number] INP/OBS CARE(HIGH) TOM BUENROSTRO MD Jul 18, 2024 16:28
[2024-07-18] MEDS ORDERED: TRAM-626 PO (17:29)
[2024-07-18 18:10] VITALS: PULSE 124; RESP 22; O2SAT 94
[2024-07-18] MEDS ORDERED: CARV6.2551 PO (18:25)
[2024-07-18] MEDS ORDERED: ALL300T PO (18:26)
[2024-07-18] MEDS ORDERED: METF500S3 PO (18:27)
[2024-07-18] MEDS: HYDROcodone-ACET 5/325MG TAB PO PRN (21:16)
[2024-07-18 21:26] VITALS: BP 120/88; PULSE 124; RESP 22; TEMP 98.7; O2SAT 94
[2024-07-19] VITALS (8 sets, daily range): BP systolic 109–122; BP diastolic 68–83; PULSE 90–119; RESP 17–20; TEMP 97.9–99.4; O2SAT 91–95
[2024-07-19 06:40] LABS: Chloride 102 mmol/L (98-107); Potassium 3.5 mmol/L (3.5-5.1); Sodium 137 mmol/L (136-145)
[2024-07-19 06:41] LABS: Anion Gap 11 (5-15); Carbon Dioxide 24 mmol/L (20-31)
[2024-07-19 06:46] LABS: BUN/Creatinine Ratio 9.8 (10.0-20.0); Glucose 98 mg/dL (74-106)
[2024-07-19 06:48] LABS: Blood Urea Nitrogen 8 mg/dL (9-23)
--- NOTE | 2024-07-19 07:16 | ECG ---
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
[2024-07-19] MEDS ORDERED: METH4TAB9 PO (07:18)
[2024-07-19] MEDS: ALLOPURINOL 100 MG TAB PO SCH (08:32)
[2024-07-19] MEDS: ASPirin 81 mg TAB PO SCH (08:33)
--- NOTE | 2024-07-19 10:44 | DVHPN2 ---
Reviewed: Care Plan, H&P, Labs, Medications, Previous Orders, Radiology Changes from previous H/P or p: No Changes Objective Vitals Vital Signs Date Time Temp Pulse Resp B/P (MAP) Pulse Ox O2 Delivery O2 Flow Rate FiO2 07/19/24 08:00 119 17 91 Room Air* 0 21 07/19/24 07:59 98.0 122/83 (96) 98.0 Medications Current Medications Medications Dose Ordered Sig/Poppy Route Start Time Stop Time Status Last Admin Dose Admin Ondansetron HCl 4 mg Q4HP PRN IV 07/18/24 04:45 Nitroglycerin 0.4 mg Q5MINP PRN SL 07/18/24 04:45 07/18/24 14:49 0.4 MG Morphine Sulfate 2 mg Q30M PRN IV 07/18/24 04:45 Allopurinol 300 mg DAILY PO 07/19/24 10:00 07/19/24 08:32 300 MG Acetaminophen/ Hydrocodone Bitart 1 tab Q8HPRN PRN PO 07/18/24 21:15 07/19/24 06:25 1 TAB Aspirin 81 mg DAILY PO 07/19/24 10:00 07/19/24 08:33 81 MG Laboratory Results Laboratory Tests 07/17/24 22:35 07/19/24 05:17 Chemistry Test 07/19/24 05:17 Calcium Level 10.0 mg/dL (8.7-10.4) Urinalysis Test 07/18/24 00:00 Urine Color Light-yellow (Yellow) Urine Clarity Clear (Clear) Urine pH 5.5 (5.0-9.0) Urine Specific [place] > 1.050 (1.001-1.035) Urine Protein Trace (Negative) H Urine Ketones Negative (Negative) Urine Blood Negative /uL (Negative) Urine Nitrite Negative (Negative) Urine Bilirubin Negative (Negative) Urine Urobilinogen Normal mg/dL (Negative) Urine Leukocyte Esterase Negative /uL (Negative) Urine RBC <1 /hpf (0 - 3) Urine Microscopic WBC < 1 /HPF (0-3) Urine Squamous Epithelial Cells None seen /hpf (<5) Urine Bacteria None seen /hpf (None Seen) Urine Glucose Normal mg/dL (Normal) Assessment/Plan Assessment/Plan Noncardiac chest pain, possible chest wall pain cardiology consult appreciated, echocardiogram pending, started on Motrin 600 mg PO TID Rule out structural heart disease Prediabetes Gout allopurinol Obesity Urine drug screen neg Plan discussed with: Patient My Orders Orders - TOM BUENROSTRO MD Procedure Category Date Status Time Communication Order ORDERS 07/18/24 Transmitted 16:25 Allopurinol Tablet PHA 07/19/24 In Process (Zyloprim Tablet) 10:00 Date of Service: Jul 19, 2024 Billing Provider: TOM BUENROSTRO MD Common Visit Codes: [id number] INP/OBS CARE(HIGH) TOM BUENROSTRO MD Jul 19, 2024 10:44
[2024-07-19] MEDS: IBUPROFEN 600 MG TAB PO PRN (12:25)
--- NOTE | 2024-07-19 16:39 | DVHSR ---
APPROVED REPORT EXAM: Two-dimensional and M-mode echocardiogram with Doppler and color Doppler. Blood Pressure: 122/83 mmHg INDICATION Chest Pain RISK FACTORS Obesity: Height: 5'8, Weight: 247 DIMENSIONS LVDd4.3 (3.8-5.7cm)LA (2D)3.1 (1.9-4.0cm)Aortic Root2.9 (2.0-3.7cm) LVDs2.9 (2.5-4.0cm)LA (MM) (1.9-4.0cm)Aortic Cusp Exc1.7 (1.5-2.0cm) EF (%) 60.0 (55-70%)Rt. Atrium2.8 (1.9-4.0cm)Asc. Aorta2.5 cm IVSd0.8 (0.7-1.1cm)RV (D) (1.8-2.4cm) PWd1.0 (0.7-1.1cm) Mitral Valve MitralMitral Stenosis E wave0.59m/sMV Mean GR.mmHg A wave0.77m/sMV Peak GR.mmHg E/A ratio0.82D MVAcm2 DECEL [id number] 1/2 Timems Aortic Valve Aortic ValveAortic Stenosis V10.80m/Meena Mean GR.2mmHg V20.89m/Meena Peak GR.3mmHg LVOT Diameter2.2 (1.8-2.4cm)Doppler AVA3.42cm2 Pulmonic Valve V20.98m/s Other Information Quality : Technically LimitedRhythm : Technically limited study due to pt unable to move Conclusion Technically good study. Sinus rhythm. Aortic root enlargement. Valves are normal. EF of 60% with normal RV function. Dopplers unremarkable. No pericardial effusion masses or vegetations.
[2024-07-20 01:00] VITALS: BP 106/69; PULSE 107; RESP 18; TEMP 98.7; O2SAT 96
[2024-07-20 05:00] VITALS: BP 110/59; PULSE 93; RESP 18; TEMP 98.7; O2SAT 94
[2024-07-20 08:00] VITALS: PULSE 108; PULSE 141; RESP 20; O2SAT 95
[2024-07-20 08:46] VITALS: BP 119/64; PULSE 108; RESP 20; TEMP 99.2; O2SAT 95
[2024-07-20] MEDS ORDERED: IBU600T PO (09:57)
--- NOTE | 2024-07-20 10:00 | DVHDS2 ---
Discharge Summary Date of Admission Jul 18, 2024 at 04:41 Date of Discharge: Jul 20, 2024 Admitting Diagnosis Chest pain Wounds: None Labs/Diagnostic Data: Laboratory Results Test 07/19/24 05:17 07/18/24 00:00 07/17/24 23:40 07/17/24 22:35 Sodium Level 137 mmol/L (136-145) Potassium Level 3.5 mmol/L (3.5-5.1) Chloride Level 102 mmol/L (98-107) Carbon Dioxide Level 24 mmol/L (20-31) Anion Gap 11 (5-15) Blood Urea Nitrogen 8 mg/dL (9-23) Creatinine 0.82 mg/dL (0.700-1.30) Glomerular Filtration Rate Calc 118 mL/min (>90) BUN/Creatinine Ratio 9.8 (10.0-20.0) Serum Glucose 98 mg/dL (74-106) Calcium Level 10.0 mg/dL (8.7-10.4) Urine Color Light-yellow (Yellow) Urine Clarity Clear (Clear) Urine pH 5.5 (5.0-9.0) Urine Specific [place] > 1.050 (1.001-1.035) Urine Protein Trace (Negative) Urine Ketones Negative (Negative) Urine Blood Negative /uL (Negative) Urine Nitrite Negative (Negative) Urine Bilirubin Negative (Negative) Urine Urobilinogen Normal mg/dL (Negative) Urine Leukocyte Esterase Negative /uL (Negative) Urine RBC <1 /hpf (0 - 3) Urine Microscopic WBC < 1 /HPF (0-3) Urine Squamous Epithelial Cells None seen /hpf (<5) Urine Bacteria None seen /hpf (None Seen) Urine Glucose Normal mg/dL (Normal) Urine Opiates Screen Neg (NEGATIVE) Urine Fentanyl Screen Neg (NEGATIVE) Urine Barbiturates Screen Neg (NEGATIVE) Urine Phencyclidine Screen Neg (NEGATIVE) Urine Amphetamines Screen Neg (NEGATIVE) Urine Benzodiazepines Screen Neg (NEGATIVE) Urine Cocaine Screen Neg (NEGATIVE) Urine Cannabinoids Screen Neg (NEGATIVE) Troponin I High Sensitivity < 3 ng/L (</=54) White Blood Count 10.6 10^3/uL (4.4-10.8) Red Blood Count 4.62 10^6/uL (4.5-5.90) Hemoglobin 14.8 g/dL (13.5-17.5) Hematocrit 42.8 % (41.0-53.0) Mean Corpuscular Volume 92.7 fL (80.0-100.0) Mean Corpuscular Hemoglobin 32.1 pg (28.0-32.0) Mean Corpuscular Hemoglobin Concent 34.6 g/dL (32.0-36.0) Red Cell Distribution Width 14.4 % (11.8-14.3) Platelet Count 263 10^3/uL (140-450) Mean Platelet Volume 9.2 fL (6.9-10.8) Neutrophils (%) (Auto) 56.1 % (37.0-80.0) Lymphocytes (%) (Auto) 33.2 % (10.0-50.0) Monocytes (%) (Auto) 8.2 % (0.0-12.0) Eosinophils (%) (Auto) 1.9 % (0.0-7.0) Basophils (%) (Auto) 0.6 % (0.0-2.0) Neutrophils # (Auto) 6.0 10 ^3/uL (1.6-8.6) Lymphocytes # (Auto) 3.5 10 ^3/uL (0.4-5.4) Monocytes # (Auto) 0.9 10 ^3/uL (0-1.3) Eosinophils # (Auto) 0.2 10 ^3/uL (0-0.8) Basophils # (Auto) 0.1 10 ^3/uL (0-0.2) Nucleated Red Blood Cells 0.1 % Magnesium Level 1.7 mg/dL (1.6-2.6) Total Bilirubin 0.3 mg/dL (0.2-1.0) Aspartate Amino Transferase (AST) 19 U/L (13-40) Alanine Aminotransferase (ALT) 40 U/L (7-40) Alkaline Phosphatase 95 U/L (46-116) B-Type Natriuretic Peptide 2.25 pg/mL (0-100) Total Protein 7.2 g/dL (5.7-8.2) Albumin 4.5 g/dL (3.2-4.8) Other Laboratory Tests 07/19/24 05:17 07/17/24 22:35 Brief Hx & Hospital Course: Old male with a history of gout prediabetes came in complaining of chest pain troponin negative x3 treated per ACS protocol echocardiogram 60 percent ejection fraction treated with Motrin 600 mg PO TID. No further cardiac workup. patient has noncardiac chest pain cleared by Cardiology discharged home on Motrin Consults/Reason for consult Cardiology Operations or Procedures Echocardiogram Condition at Discharge: Fair Final Diagnosis/Problems List Noncardiac chest pain, possible chest wall pain cardiology consult appreciated, echocardiogram pending, started on Motrin 600 mg PO TID echo 60 % ejection fraction Rule out structural heart disease Prediabetes Gout allopurinol Obesity Urine drug screen neg Discharge Disposition: Home Discharge Instruct/Medications Diet: Regular Activity: Light activity Follow Up/Referral: Follow up with your primary Dr Resume all previous home medications Medications: Motrin 600 mg PO TID Transmitted to pharmacy 35 (Time taken For discharge summary 35 minutes) Discharge Statement: "Patient was advised to return to the ER or call 911 if any headaches, dizziness, shortness of breath, chest pain, abdominal pain, bleeding, fevers, or worsening of medical condition. Patient was counseled about treatment plan, medications, possible side effects, patientverbalized understanding. All questions were answered to the best of my ability. This discharge took greater then 30 minutes in planning, reviewing documentation, counseling the patient, and discussing with other team members." ASSESSMENT ASSESSMENT Hospital Course Uneventful Assessment Noncardiac chest pain, possible chest wall pain cardiology consult appreciated, echocardiogram pending, started on Motrin 600 mg PO TID echo 60 % ejection fraction Rule out structural heart disease Prediabetes Gout allopurinol Obesity Urine drug screen neg Date of Service: Jul 20, 2024 Billing Provider: TOM BUENROSTRO MD Common Visit Codes: [id number] DISCH DAY >30min TOM BUENROSTRO MD Jul 20, 2024 10:00
[2024-07-20 11:04] VITALS: BP 119/64; PULSE 108; RESP 20; TEMP 99.2; O2SAT 95
== END 2024-07-20 11:50 | disposition home or self-care (01) | DRG 203 ==
LOC: ER 22:24 → TELE 07-18 04:41 → TELE-WESTW 07-18 21:25
PROVIDERS: ADMIT Nurse Practitioner; ATTEND Family Medicine
DX: R07.89 Other chest pain (principal); E66.01 Morbid (severe) obesity due to excess calories; M10.9 Gout, unspecified; R73.03 Prediabetes; M54.9 Dorsalgia, unspecified; F17.210 Nicotine dependence, cigarettes, uncomplicated; R60.9 Edema, unspecified; I51.7 Cardiomegaly; Z82.49 Family history of ischemic heart disease and other diseases of the circulatory system; Z68.37 Body mass index [BMI] 37.0-37.9, adult
CPT/HCPCS: 36415; 71045; 71275; 80048; 80053; 80307; 81001; 83735; 83880; 84484; 85025; 93005; 93306; 96374; 96375; 99291; G0378; J2405